=== PATIENT | female | born 1970 | race Two or more races ===

== ENCOUNTER 2016-12-20 23:32 | Emergency (ER) | payer OTHER ==
[~2016-12-20] VITALS: Ht 157.5 cm; Wt 80.7 kg
[2016-12-20 23:40] VITALS: BP 121/68
[2016-12-21] MEDS ORDERED: LIDOCAINE 1% HCL (LOCAL ANESTH.) INJ 20ML MDV IJ ONE (02:00)
[2016-12-21] MEDS ORDERED: TETANUS-DIPTH-ACEL PERTUSSIS 0.5ML SYRG IM ONE (02:15)
== END 2016-12-21 02:56 | disposition home or self-care (01) ==
LOC: ER 23:33
DX: S61.214A Laceration without foreign body of right ring finger without damage to nail, initial encounter (principal); W26.9XXA Contact with unspecified sharp object(s), initial encounter; Y93.89 Activity, other specified; Y99.0 Civilian activity done for income or pay; Y92.69 Other specified industrial and construction area as the place of occurrence of the external cause
CPT/HCPCS: 12001; 90471; 90715; 99283; J2001

== ENCOUNTER 2020-06-06 20:04 | Emergency (ER) | payer SELFPAY ==
[~2020-06-06] VITALS: Ht 162.6 cm; Wt 86.2 kg
[2020-06-06 21:57] LABS: Urine Bacteria FEW /hpf (None Seen); Urine Blood Negative /uL (Negative); Urine Mucus FEW (None Seen); Urine Specific Gravity 1.011 (1.001-1.035); Urine WBC 1 /hpf (0 - 5)
[2020-06-06 22:01] LABS: Basophils # (auto) 0 10 ^3/uL (0-0.2); Basophils % (auto) 0.4 % (0.0-2.0); Eosinophils # (auto) 0 10 ^3/uL (0-0.8); Hematocrit 39.5 % (36.0-46.0); Hemoglobin 13.7 g/dL (12.2-16.2); Lymphocytes % (auto) 22.4 % (10.0-50.0); Mean Corpuscular Hemoglobin 33.2 pg (28.0-32.0); Mean Corpuscular Hgb Conc. 34.8 g/dL (32.0-36.0); Mean Corpuscular Volume 95.5 fL (80.0-100.0); Monocytes # (auto) 0.3 10 ^3/uL (0-1.3); Monocytes % (auto) 7.2 % (0.0-12.0); Neutrophils # (auto) 3.2 10 ^3/uL (1.6-8.6); Nucleated Red Blood Cells % 0.1 %; Platelet Count (auto) 168 10^3/uL (140-450); Red Blood Cells 4.13 10^6/uL (4.0-5.20); White Blood Cell 4.6 10^3/uL (4.4-10.8)
[2020-06-06 22:14] LABS: Alcohol, Urine < 3.0 mg/dL (0-10); Amphetamine Screen, Urine NEGATIVE (NEGATIVE); Barbiturate Scree,Urine NEGATIVE (NEGATIVE); Benzodiazephine Screen, Urine NEGATIVE (NEGATIVE); Cannabinoid Screen, Urine NEGATIVE (NEGATIVE); Cocaine Screen, Urine NEGATIVE (NEGATIVE); Opiate Scree,Urine NEGATIVE (NEGATIVE); Phencyclidine Screen, Urine NEGATIVE (NEGATIVE)
[2020-06-06 22:16] LABS: Albumin 3.7 g/dL (3.4-5.0); Anion Gap 5 (5-15); Calcium 8.2 mg/dL (8.5-10.1); Carbon Dioxide 24 mmol/L (21-32); Chloride 109 mmol/L (98-107); Glucose 87 mg/dL (74-106); Potassium 3.6 mmol/L (3.5-5.1); Sodium 138 mmol/L (136-145)
[2020-06-06 22:17] LABS: INR 1.03 (0.9-1.15); Partial Thromboplastin Time 27.2 sec (23.0-31.2)
[2020-06-06 22:22] LABS: Alanine Aminotransferase 16 U/L (13-56); Alkaline Phosphatase 51 U/L (45-117); Aspartate Aminotransferase 14 U/L (15-37); Bilirubin, Total 0.3 mg/dL (0.2-1.0); GFR African American 104 mL/min; GFR Non-African American 86 mL/min; Total Protein 6.7 g/dL (6.4-8.2)
[2020-06-06 22:23] LABS: BUN/Creatinine Ratio 17.1; Blood Urea Nitrogen 13 mg/dL (7-18)
[2020-06-07 02:00] VITALS: BP 110/56
== END 2020-06-07 02:33 | disposition home or self-care (01) ==
LOC: ER 20:04 → EDSEX 20:04 → EDBD 20:04 → ER 06-07 02:33
DX: R55 Syncope and collapse (principal); R51.9 Headache, unspecified; G89.29 Other chronic pain; M54.5 Low back pain
CPT/HCPCS: 36415; 70450; 71045; 80053; 80307; 81001; 83735; 84484; 85025; 85610; 85730; 93005

== ENCOUNTER 2020-06-27 17:06 | Emergency (ER) | payer SELFPAY ==
[~2020-06-27] VITALS: Ht 157.5 cm; Wt 74.8 kg
[2020-06-27 17:09] VITALS: BP 117/77
[2020-06-27] MEDS ORDERED: ONDANSETRON ODT 4 MG TAB PO ONE (17:30)
[2020-06-27 18:28] LABS: Basophils # (auto) 0 10 ^3/uL (0-0.2); Basophils % (auto) 0.3 % (0.0-2.0); Eosinophils # (auto) 0 10 ^3/uL (0-0.8); Eosinophils % (auto) 0.1 % (0.0-7.0); Hemoglobin 14.8 g/dL (12.2-16.2); Lymphocytes # (auto) 0.7 10 ^3/uL (0.4-5.4); Lymphocytes % (auto) 14.5 % (10.0-50.0); Mean Corpuscular Hemoglobin 32.6 pg (28.0-32.0); Mean Corpuscular Hgb Conc. 34.3 g/dL (32.0-36.0); Monocytes # (auto) 0.3 10 ^3/uL (0-1.3); Monocytes % (auto) 6.2 % (0.0-12.0); Neutrophils % (auto) 78.9 % (37.0-80.0); Platelet Count (auto) 166 10^3/uL (140-450); Red Blood Cells 4.53 10^6/uL (4.0-5.20); Red Cell Distribution Width 13.1 % (11.8-14.3); White Blood Cell 5.1 10^3/uL (4.4-10.8)
[2020-06-27 19:29] LABS: Sodium 135 mmol/L (136-145)
[2020-06-27 19:30] LABS: Alanine Aminotransferase 27 U/L (13-56); Alkaline Phosphatase 55 U/L (45-117); Anion Gap 6 (5-15); Aspartate Aminotransferase 17 U/L (15-37); BUN/Creatinine Ratio 11.2; Bilirubin, Total 0.4 mg/dL (0.2-1.0); Blood Urea Nitrogen 10 mg/dL (7-18); Calcium 8.7 mg/dL (8.5-10.1); Carbon Dioxide 26 mmol/L (21-32); Chloride 103 mmol/L (98-107); GFR African American 86 mL/min; GFR Non-African American 71 mL/min; Glucose 108 mg/dL (74-106); Magnesium 2.2 mg/dL (1.6-2.6); Potassium 3.7 mmol/L (3.5-5.1); Total Protein 7.8 g/dL (6.4-8.2)
== END 2020-06-27 21:07 | disposition home or self-care (01) ==
LOC: ER 17:06
DX: U07.1 COVID-19 (principal)
CPT/HCPCS: 36415; 71045; 80053; 83735; 85025; 87426; 99284; Q0162